=== PATIENT | female | born 1955 | race Caucasian/White ===

== ENCOUNTER 2016-05-31 06:12 | Day surgery (SDC) | payer OTHER, BC ==
[2016-05-31] MEDS ORDERED: Lactated Ringers 1,000 ML IV SCH (06:30)
[2016-05-31] MEDS ORDERED: DIPRIVAN 200 MG/20 ML IV ONE (08:00)
[2016-05-31] MEDS ORDERED: Ketamine HCl 50 MG/ML IJ ONE (08:00)
[2016-05-31 09:37] VITALS: O2SAT 96
[2016-05-31 09:39] VITALS: BP 104/70; PULSE 66
--- NOTE | 2016-05-31 09:39 | OP ---
SURGERY DATE/TIME: 05/31/2016 0800 PREOPERATIVE DIAGNOSIS: Rectal bleeding. POSTOPERATIVE DIAGNOSIS: Normal colon. PROCEDURE: Colonoscopy. SURGEON: Fernando Azevedo M.D. ANESTHESIA: MAC by Mango Castillo CRNA. ESTIMATED BLOOD LOSS: None. SPECIMENS: None. DESCRIPTION OF PROCEDURE: After informed written consent was obtained, the patient was taken to the endoscopy suite. Intermittent blood pressure monitoring and continuous pulse oximetry used throughout the entirety of the procedure. The patient underwent monitored anesthesia and digital rectal exam showed normal sphincter tone. The scope was inserted in the rectum and sequentially the entire colonic mucosa was traversed. The level of cecum was reached and verified with direct visualization of ileocecal valve. Upon withdrawal there were no gross abnormalities encountered. Prior to withdrawal retroflexion was performed and showed some mild internal hemorrhoids with no active bleeding. The scope was removed and the patient was transferred to the recovery room in excellent condition.
== END 2016-05-31 09:05 | disposition home or self-care (01) ==
LOC: SDC 06:12
PROVIDERS: ATTEND Family Medicine
PROC: 0DJD8ZZ Inspection of Lower Intestinal Tract, Via Natural or Artificial Opening Endoscopic (ICD-10-PCS; principal; 2016-05-31)
DX: K62.5 Hemorrhage of anus and rectum (principal)
CPT/HCPCS: 00810; J2704